=== PATIENT | male | born 1950 | race Caucasian/White ===

== ENCOUNTER 2018-05-29 19:47 | Emergency (ER) | payer OTHER ==
[2018-05-29] MEDS ORDERED: NS 1,000 ML IV ONE (19:51)
--- NOTE | 2018-05-29 19:53 | EDPHY ---
H & P Time Seen by Provider: 05/29/18 19:51 HPI/ROS: CHIEF COMPLAINT: Intoxication, head injury HISTORY OF PRESENT ILLNESS: The patient is a 68-year-old intoxicated man who fell in the parking lot of grocery store. He has a hematoma and abrasion to his right forehead. No loss of consciousness. He denies neck pain. No other acute injuries. Witnesses called EMS who brought him here. The patient states he has only had 2 beers. He has multiple old wounds from previous falls including want to his right hip. REVIEW OF SYSTEMS: Constitutional: denies: chills, fever, recent illness, recent injury EENTM: denies: blurred vision, double vision, nose congestion Respiratory: denies: cough, shortness of breath Cardiac: denies: chest pain, irregular heart rate, lightheadedness, palpitations Gastrointestinal/Abdominal: denies: abdominal pain, diarrhea, nausea, vomiting, blood streaked stools Genitourinary: denies: dysuria, frequency, hematuria, pain Musculoskeletal: denies: joint pain, muscle pain Skin: Multiple bruises and abrasions, see above Neurological: denies: headache, numbness, paresthesia, tingling, dizziness, weakness Hematologic/Lymphatic: denies: blood clots, easy bleeding, easy bruising Immunologic/allergic: denies: HIV/AIDS, transplant EXAM: GENERAL: Well-appearing, well-nourished and in no acute distress. HEAD: Hematoma and abrasion to right forehead, does not require sutures. EYES: Pupils equal round and reactive to light, extraocular movements intact, sclera anicteric, conjunctiva are normal. ENT: TMs normal, nares patent, oropharynx clear without exudates. Moist mucous membranes. NECK: Normal range of motion, supple without lymphadenopathy or JVD. LUNGS: Breath sounds clear to auscultation bilaterally and equal. No wheezes rales or rhonchi. HEART: Regular rate and rhythm without murmurs, rubs or gallops. ABDOMEN: Soft, nontender, normoactive bowel sounds. No guarding, no rebound. No masses appreciated. BACK: No CVA tenderness, no spinal tenderness, step-offs or deformities EXTREMITIES: Normal range of motion, no pitting or edema. No clubbing or cyanosis. Chronic healing wound to right hip, bandage NEUROLOGICAL: Cranial nerves II through XII grossly intact. Normal speech, normal gait. 5/5 strength, normal movement in all extremities, normal sensation PSYCH: Normal mood, normal affect. SKIN: Abrasion/hematoma to right forehead, multiple old abrasions and contusions. Source: Patient Exam Limitations: No limitations - Medical/Surgical History Hx Asthma: No Hx Chronic Respiratory Disease: No Hx Diabetes: No Hx Cardiac Disease: No Hx Renal Disease: No Hx Cirrhosis: No Hx Alcoholism: No Hx HIV/AIDS: No Hx Splenectomy or Spleen Trauma: No Other PMH: none - Family History Significant Family History: No pertinent family hx - Social History Smoking Status: Former smoker Alcohol Use: None Constitutional: Initial Vital Signs Temperature (C) 36.6 C 05/29/18 19:50 Heart Rate 84 05/29/18 19:50 Respiratory Rate 18 05/29/18 19:50 Blood Pressure 163/96 H 05/29/18 19:50 O2 Sat (%) 95 05/29/18 19:50 O2 Delivery Mode Room Air Medical Decision Making - Diagnostics Imaging Results: Imaging Impressions Head CT 05/29/18 19:51 Impression: 1. Negative for intracranial bleed. 2. Atrophy and presumed small vessel disease. 3. See above report for additional findings. CT Cervical Spine Without Contrast History: Trauma. Technique: Multislice helical CT through the cervical spine without contrast from the skull base to T1. Soft tissue and bone evaluation is performed. Sagittal and coronal reconstructions are obtained and reviewed. Dose reduction techniques were utilized. Findings: There is a minimal anterolisthesis of C4 with respect to C3 presumably on the basis of hypertrophic degenerative changes. Otherwise, the bone alignment is anatomic. No fracture or dislocation is identified. The relationship between skull base and C1 is normal. The C1-C2 articulation is normal. The odontoid process is normal. The cervical thoracic junction is normal. Soft tissue window evaluation does not show evidence of epidural or prevertebral hematoma. Multilevel degenerative changes are seen with disk space loss extending from C3- C4 to the C6-C7 level. Findings are most pronounced at C4-C5 where there is disk space loss and prominent vertebral body osteophytic lipping which could contribute to canal stenosis. There is also multilevel facet and uncovertebral arthropathy resulting in multilevel neural foraminal impingement. Impression: 1. Negative for fracture. 2. Multilevel degenerative changes as detailed above. 3. See above report for additional findings. Results called and discussed with AMERICA WONG M.D. on 05/29/2018 at 21:36. Cervical Spine CT 05/29/18 19:53 Impression: 1. Negative for intracranial bleed. 2. Atrophy and presumed small vessel disease. 3. See above report for additional findings. CT Cervical Spine Without Contrast History: Trauma. Technique: Multislice helical CT through the cervical spine without contrast from the skull base to T1. Soft tissue and bone evaluation is performed. Sagittal and coronal reconstructions are obtained and reviewed. Dose reduction techniques were utilized. Findings: There is a minimal anterolisthesis of C4 with respect to C3 presumably on the basis of hypertrophic degenerative changes. Otherwise, the bone alignment is anatomic. No fracture or dislocation is identified. The relationship between skull base and C1 is normal. The C1-C2 articulation is normal. The odontoid process is normal. The cervical thoracic junction is normal. Soft tissue window evaluation does not show evidence of epidural or prevertebral hematoma. Multilevel degenerative changes are seen with disk space loss extending from C3- C4 to the C6-C7 level. Findings are most pronounced at C4-C5 where there is disk space loss and prominent vertebral body osteophytic lipping which could contribute to canal stenosis. There is also multilevel facet and uncovertebral arthropathy resulting in multilevel neural foraminal impingement. Impression: 1. Negative for fracture. 2. Multilevel degenerative changes as detailed above. 3. See above report for additional findings. Results called and discussed with AMERICA WONG M.D. on 05/29/2018 at 21:36. Imaging: Discussed imaging studies w/ scallop binder Radiologist ED Course/Re-evaluation: CT is reassuring. The patient is ambulatory. is here to take him home. They declined further workup or testing. His abrasion/hematoma was cleaned and dressed. We discussed follow-up and indications for returning. Differential Diagnosis: Partial list of the Differential diagnosis considered include but were not limited to; intoxication, head injury, neck injury, abrasion, hematoma and although unlikely based on the history and physical exam, I also considered assault, infection. I discussed these differential diagnoses and the plan with the patient as well as the usual and expected course. The patient understands that the diagnosis is provisional and that in medicine we are not always correct and that further workup is often warranted. Usual and customary warnings were given. All of the patient's questions were answered. The patient was instructed to return to the emergency department should the symptoms at all worsen or return, otherwise to followup with the physician as we discussed. - Data Points Laboratory Results: 05/29/18 20:10 Ethyl Alcohol 345 mg/dL H mg/dL (0-10) Medications Given: Discontinued Medications Sodium Chloride (Ns) 1,000 mls @ 0 mls/hr IV ONCE ONE; Wide Open PRN Reason: Protocol Stop: 05/29/18 19:52 Last Admin: 05/29/18 20:13 Dose: 1,000 mls Departure - Departure Disposition: Home, Routine, Self-Care Clinical Impression: Hematoma Alcoholic intoxication Qualifiers: Complication of substance-induced condition: uncomplicated Qualified Code(s): F10.920 - Alcohol use, unspecified with intoxication, uncomplicated Abrasion head Qualifiers: Encounter type: initial encounter Qualified Code(s): S00.91XA - Abrasion of unspecified part of head, initial encounter Condition: Fair Instructions: Alcohol Intoxication (ED), Hematoma (ED) Referrals: Patient,NotPresent [Unknown] - As per Instructions
[2018-05-29 21:56] VITALS: BP 150/100
== END 2018-05-29 21:55 | disposition home or self-care (01) ==
LOC: EDUNIT#
DX: S00.83XA Contusion of other part of head, initial encounter (principal); S00.81XA Abrasion of other part of head, initial encounter; F10.920 Alcohol use, unspecified with intoxication, uncomplicated; E86.9 Volume depletion, unspecified; Z87.891 Personal history of nicotine dependence; W18.39XA Other fall on same level, initial encounter; Y92.481 Parking lot as the place of occurrence of the external cause; Y99.8 Other external cause status
CPT/HCPCS: G0480

== ENCOUNTER 2018-06-03 16:07 | Emergency (ER) | payer OTHER ==
--- NOTE | 2018-06-03 16:35 | EDPHY ---
H & P Stated Complaint: fall - Personal History Current Tetanus/Diphtheria Vaccine: No Current Tetanus Diphtheria and Acellular Pertussis (TDAP): No - Medical/Surgical History Hx Asthma: No Hx Chronic Respiratory Disease: No Hx Diabetes: No Hx Cardiac Disease: No Hx Renal Disease: No Hx Cirrhosis: No Hx Alcoholism: Yes Hx HIV/AIDS: No Hx Splenectomy or Spleen Trauma: No Other PMH: ETOH - Social History Smoking Status: Former smoker Time Seen by Provider: 06/03/18 16:20 HPI/ROS: CHIEF COMPLAINT: "I hit my head" HISTORY OF PRESENT ILLNESS: 68-year-old male with no known coagulopathic disorder, arrives via private vehicle with his complaining of facial and head injury after he had been drinking alcohol, sustained a mechanical fall walking on his driveway described as a gravel driveway, fell forward impacting his face with no loss of consciousness. This was a mechanical non syncopal episode. No prolonged periods of mobility on the ground. No amnesia. No midline C-spine pain. No visual disturbance. No rhinorrhea. No peripheral paresthesia, weakness, numbness.. PRIMARY CARE PROVIDER: None REVIEW OF SYSTEMS: A ten point review of systems was performed and is negative with the exception of the items mentioned in the HPI PAST MEDICAL/SURGICAL HISTORY: History of alcoholism. no anticoagulant use,. Tetanus up-to-date. 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 He lives with his who is software test automation engineer as well that is currently working SOCIAL HISTORY: denies alcohol use at time of incident PHYSICAL EXAM 1) GENERAL: Well-developed, well-nourished, alert and oriented. Appears to be in no acute distress. Answering questions appropriately. Smiling, making jokes 2) HEAD: Normocephalic, right lateral eyebrow laceration measuring 1.5 cm. 3) HEENT: Pupils equal, round, reactive to light bilaterally. Inferior nasal laceration measuring 1.5 cm. Negative Horners. Nasopharynx, oropharynx, clear. No deformity or angulation of nose. Superficial skin defects on the bridge in tip of the nose. No septal hematoma. No rhinorrhea. No oral trauma. Ears bilaterally with normal tympanic membranes. No hemotympanum. No fluid or blood in the external auditory canal. No raccoon eyes. No Whelan sign. Teeth are normally aligned with no gross malocclusion, TMJ bilaterally nontender, facial bones nontender including the zygomatic arch, maxilla mandible. 4) NECK: No cervical collar is on. Posterior cervical spine is nontender, no stepoff, no effusion. Full range of motion which does not elicit any midline cervical spine pain, no posterior midline tenderness, no step-off. 5) LUNGS: Clear to auscultation bilaterally, no wheezes, no rhonchi, no retractions. No obvious signs of trauma. No chest wall pain. No flaring, no grunting. Moving symmetrically. No crepitus. 6) HEART: [Regular rate and rhythm, 7) ABDOMEN: No guarding, no rebound, no focal tenderness, no peritoneal signs, no signs of trauma, no ecchymosis 8) MUSCULOSKELETAL: Moving all extremities, no focal areas of tenderness, no obvious trauma. 9) BACK: No midline vertebral tenderness, no fluctuance, no step-off, no obvious trauma, no visual or palpable abnormality. 10) SKIN: Multiple abrasion to the DIFFERENTIAL DIAGNOSIS: Not necessarily in any particular order, my differential diagnosis includes, but is not limited to, concussion, skull fracture, intraparenchymal contusion, subarachnoid, subdural and epidural hematoma. The patient understands that this diagnosis is provisional and can never be 100% accurate. (Caroline Matthews) Constitutional: Initial Vital Signs Temperature (C) 37.6 C 06/03/18 16:13 Heart Rate 121 H 06/03/18 16:13 Respiratory Rate 16 06/03/18 16:13 Blood Pressure 128/90 H 06/03/18 16:13 O2 Sat (%) 94 06/03/18 16:13 O2 Delivery Mode Room Air Allergies/Adverse Reactions: No Known Allergies Allergy (Unverified 06/03/18 16:12) Home Medications: Medication Instructions Recorded Amoxicillin/Clavulanate Pot 875 mg PO BID #14 tab 06/03/18 [Augmentin 875 mg tab] Medical Decision Making - Diagnostics Imaging Results: Imaging Impressions Cervical Spine CT 06/03/18 16:33 Impression: 1. No acute intracranial pathology 2. New bilateral nasal lateral plate fractures. 2. CT Cervical Spine Without Contrast History: Trauma., Trip and fall. Neck pain. ETOH. Comparison: May 29, 2008 Technique: Multislice helical CT through the cervical spine without contrast from the skull base to T1. Soft tissue and bone evaluation is performed. Sagittal and coronal reconstructions are obtained and reviewed. Dose reduction techniques were utilized. Findings: Cervical alignment is stable, with mild retrolistheses associated with moderate-severe degenerative disk space narrowing between C3 and C5. No fracture or dislocation is identified. There is stable multilevel bilateral degenerative facet disease. The relationship between skull base and C1 is normal. The C1-C2 articulation is normally aligned. The odontoid process is intact. The cervical thoracic junction is normally aligned. Soft tissue window evaluation does not show evidence of epidural or prevertebral hematoma. Impression: 1. Stable spondylosis x4 days. No acute posttraumatic abnormality identified. Results called and discussed with Caroline Matthews, at 06/03/2018 17:24 Final results are concordant with the initial interpretation. General information for patients regarding this examination can be found at [email or web address]. If you have questions or comments about this report, please contact me at (hospital) or [phone] (cell). Head CT 06/03/18 16:33 Impression: 1. No acute intracranial pathology 2. New bilateral nasal lateral plate fractures. 2. CT Cervical Spine Without Contrast History: Trauma., Trip and fall. Neck pain. ETOH. Comparison: May 29, 2008 Technique: Multislice helical CT through the cervical spine without contrast from the skull base to T1. Soft tissue and bone evaluation is performed. Sagittal and coronal reconstructions are obtained and reviewed. Dose reduction techniques were utilized. Findings: Cervical alignment is stable, with mild retrolistheses associated with moderate-severe degenerative disk space narrowing between C3 and C5. No fracture or dislocation is identified. There is stable multilevel bilateral degenerative facet disease. The relationship between skull base and C1 is normal. The C1-C2 articulation is normally aligned. The odontoid process is intact. The cervical thoracic junction is normally aligned. Soft tissue window evaluation does not show evidence of epidural or prevertebral hematoma. Impression: 1. Stable spondylosis x4 days. No acute posttraumatic abnormality identified. Results called and discussed with Caroline Matthews, at 06/03/2018 17:24 Final results are concordant with the initial interpretation. General information for patients regarding this examination can be found at [email or web address]. If you have questions or comments about this report, please contact me at (hospital) or [phone] (cell). Images reviewed myself (Caroline Matthews) Procedures: Procedure: Laceration repair. I explained the indications, risks and benefits for both laceration repair and anesthetic administration. Verbal consent was obtained from the patient. Patient has multiple lacerations on the face and nose which were anesthetized using 0.5% bupivicaine without epinephrine. After anesthetic administered the patient was observed for a period of time and had no apparent adverse effects. The wound was cleaned, prepped, draped in normal sterile fashion and explored to its base. No foreign body seen, no foreign bodies palpated. The right lateral eyebrow laceration measuring 1.5 cm closed with tissue adhesive. The inferior nasal laceration measuring 1.5 cm closed with 4 simple interrupted 6 0 Prolene sutures. There were no deep structures involved. The wound repair was complex. The procedure was performed by myself. Patient has been informed that scarring will occur, although efforts have been made to minimize this. (Caroline Matthews) ED Course/Re-evaluation: Patient was re-evaluated with serial examinations. Imaging studies were discussed with him. No intracranial or cervical posttraumatic sequelae. He is noted to have new nasal bone fracture. He had multiple abrasions and lacerations struck closed primarily in the ER. On the tip and bridge of his nose he is noted to have small skin defects which I recommended follow up with Plastic surgery as well as ENT for underlying nasal fracture. I will plan on initiating antibiotic therapy. His tetanus is up-to-date. Regarding his alcohol use. The telephonic case manager, the patient and his had multiple lengthy discussions discussing sobriety options for the e patient. Doubt delirium tremens. He does not want to initiate sobriety treatment tonight. Doubt alcoholic hallucinosis. He and feel comfortable being discharged. 7:16 p.m.: The patient had slow bleeding from the abrasion on his nose. Topical TXA was applied for a period of time resulting in hemostasis. (Caroline Matthews) I did not see this patient while he was in the emergency department. However his care was discussed with the PA while the patient was in the department. I agree with treatment plan and management (Casa Pichardo) - Data Points Medications Given: Discontinued Medications Amoxicillin/Clavulanate Potassium (Augmentin 875mg) 875 mg PO EDNOW ONE PRN Reason: Protocol Stop: 06/03/18 18:16 Last Admin: 06/03/18 18:30 Dose: 875 mg Tranexamic Acid (Cyklokapron) 500 mg TP EDNOW ONE Stop: 06/03/18 18:35 Last Admin: 06/03/18 18:37 Dose: 500 mg Departure - Departure Disposition: Home, Routine, Self-Care Clinical Impression: Alcohol abuse, Nasal bone fracture, Nasal laceration, Forehead laceration, Head injury Condition: Good Instructions: Nasal Fracture (ED), Abrasion (ED) Additional Instructions: ALTHOUGH THERE IS NO EVIDENCE OF SERIOUS HEAD INJURY AT THIS TIME, DELAYED SIGNS CAN APPEAR 24 TO 48 HOURS AFTER INJURY. PLEASE RETURN TO THE EMERGENCY DEPARTMENT (ED) IMMEDIATELY IF YOU HAVE INCREASED HEADACHE, PERSISTENT HEADACHE , VOMITING, WEAKNESS, CONFUSION OR VISUAL PROBLEMS. WE RECOMMEND THAT YOU DO NOT RESUME CONTACT SPORTS OR ACTIVITIES THAT TAKE COORDINATION OR BALANCE SUCH SKIING OR RIDING A BICYCLE UNTIL CLEARED TO DO SO BY YOUR DOCTOR OR BY A NEUROLOGIST. Please follow up with Alcohol detox and rehabilitation. [facility] [place] [facility] for detox. If you decide you would like to go, you may call and ask to speak with someone in "detox intake" I have provided you with information for both Denita Young and Vineet at the [facility] Referrals: Matty Dawkins JR, MD [Medical Doctor] - 2-3 days, call for appt. (Dr. Dawkins is a plastic surgeon) Farhad Harding MD [Medical Doctor] - 2-3 days, call for appt. (Dr. Bee Covarrubias is an ear nose and throat doctor. Do not blow your nose) Prescriptions: Amoxicillin/Clavulanate Pot [Augmentin 875 mg tab] 875 mg PO BID #14 tab
[2018-06-03] MEDS ORDERED: SKIN ADHESIVE (DERMABOND) 1 EACH TP ONE (17:28)
[2018-06-03] MEDS ORDERED: AMOXICILLIN/CLAVULANATE POT 875/125 MG TAB PO ONE (18:15)
[2018-06-03 18:30] VITALS: BP 125/84
[2018-06-03] MEDS ORDERED: TRANEXAMIC ACID 1,000 MG/10 ML VIAL TP ONE (18:34)
--- NOTE | 2018-06-03 18:49 | ASMTCMCOM ---
CM Note CM Note Notes: I have met with patient and his Ariella or to discuss ETOH detox and rehabilitation resources. Ariella explains that patient has been drinking heavily for the past 10 years. She states that patient has not been to rehab or addressed his drinking/consequences despite the effects they have taken on his health and their relationship. 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 Ariella admits that she has "enabled" patient and "made excuses" for him for many years. She would like for him to get help and is not sure how to encourage him to do this. They do not have children or other family in the area, nor has Ariella sought out other support such as Reynaldo Nunez. I have discussed detox and rehab programs with Ariella and encouraged her to begin having these conversations with patient. I have also discussed this with the patient and encouraged him to consider going to detox this evening. I spoke with Josesito at [facility] in [place] and confirmed that they have a detox bed available should patient agree to going. Patient does acknowledge that he has a "drinking problem" but insists that his fall tonight (as well as on May 29) were unrelated to his drinking. At the same time he admits that he sometimes does not "remember" things when they happen. Patient has refused to go to detox this evening despite encouragement from his and myself. He states that he will consider this tomorrow after having time to "prepare". I reiterated to patient and his that he may go directly to [facility] this evening OR call in the morning to confirm if they still have a bed. I also encourged them to consider looking into the [facility] program (detox and rehab) at [facility]. Resources for both were given. I have encouraged Ariella to look into [facility] as well Date Signed: 06/03/2018 06:48 PM Electronically Signed By:Claribel Hernandez RN
== END 2018-06-03 19:49 | disposition home or self-care (01) ==
PROC: 09QKXZZ Repair Nasal Mucosa and Soft Tissue, External Approach (ICD-10-PCS; principal; 2018-06-03)
DX: S02.2XXB Fracture of nasal bones, initial encounter for open fracture (principal); S01.111A Laceration without foreign body of right eyelid and periocular area, initial encounter; F10.10 Alcohol abuse, uncomplicated; Z87.891 Personal history of nicotine dependence; W01.198A Fall on same level from slipping, tripping and stumbling with subsequent striking against other object, initial encounter; Y92.093 Driveway of other non-institutional residence as the place of occurrence of the external cause; Y99.8 Other external cause status; Y93.01 Activity, walking, marching and hiking

== ENCOUNTER 2018-08-05 19:56 | Emergency (ER) | payer OTHER ==
--- NOTE | 2018-08-05 22:21 | EDPHY ---
H & P Stated Complaint: TRIPPED UP AND FELL HIT L EAR ON SOMETHING, LACC TO L EAR NO LOC Time Seen by Provider: 08/05/18 21:59 HPI/ROS: CHIEF COMPLAINT: Ear laceration HISTORY OF PRESENT ILLNESS: 68-year-old male via private vehicle complaining of acute left earlobe laceration we sustained a mechanical fall, tripped and fell catching his ear on a stone object in his house. No head injury. No loss of consciousness. No headache. No nausea or vomiting. No midline C-spine pain. No peripheral paresthesia, weakness, numbness. This was a mechanical incident. No syncope. No anticoagulant use PRIMARY CARE PROVIDER: REVIEW OF SYSTEMS: 10 systems reviewed and negative with the exception of the elements mentioned in the history of present illness PAST MEDICAL/SURGICAL HISTORY: no anticoagulant use, no relevant medical/ surgical history SOCIAL HISTORY: PHYSICAL EXAM 1) GENERAL: Well-developed, well-nourished, alert and oriented. Appears to be in no acute distress. Answering questions appropriately. 2) HEAD: Normocephalic, atraumatic 3) HEENT: Pupils equal, round, reactive to light bilaterally. Negative Horners. Nasopharynx, oropharynx, clear. No deformity or angulation of nose. No septal hematoma. No rhinorrhea. No oral trauma. Ears bilaterally with normal tympanic membranes. Left inferior earlobe 2 cm well-demarcated laceration. No hemotympanum. No fluid or blood in the external auditory canal. No raccoon eyes. No Whelan sign. Teeth are normally aligned with no gross malocclusion, TMJ bilaterally nontender, facial bones nontender including the zygomatic arch, maxilla mandible. 4) NECK: No cervical collar is on. Posterior cervical spine is nontender, no stepoff, no effusion. Full range of motion which does not elicit any midline cervical spine pain, no posterior midline tenderness, no step-off. 5) LUNGS: Clear to auscultation bilaterally, no wheezes, no rhonchi, no retractions. Left clavicle ecchymosis with no underlying osseous discomfort. No crepitus No obvious signs of trauma. No chest wall pain. No flaring, no grunting. Moving symmetrically. No crepitus. 6) HEART: [Regular rate and rhythm, 7) ABDOMEN: No guarding, no rebound, no focal tenderness, no peritoneal signs, no signs of trauma, no ecchymosis 8) MUSCULOSKELETAL: Moving all extremities, no focal areas of tenderness, no obvious trauma. 9) BACK: Patient logrolled while holding inline traction.No midline vertebral tenderness, no fluctuance, no step-off, no obvious trauma, no visual or palpable abnormality. 10) SKIN: No laceration. No abrasion DIFFERENTIAL DIAGNOSIS: Not necessarily in any particular order, my differential diagnosis includes, but is not limited to, concussion, skull fracture, intraparenchymal contusion, subarachnoid, subdural and epidural hematoma. The patient understands that this diagnosis is provisional and can never be 100% accurate. - Personal History Current Tetanus/Diphtheria Vaccine: No Current Tetanus Diphtheria and Acellular Pertussis (TDAP): No - Medical/Surgical History Hx Asthma: No Hx Chronic Respiratory Disease: No Hx Diabetes: No Hx Cardiac Disease: No Hx Renal Disease: No Hx Cirrhosis: No Hx Alcoholism: Yes Hx HIV/AIDS: No Hx Splenectomy or Spleen Trauma: No Other PMH: ETOH - Social History Smoking Status: Former smoker Constitutional: Initial Vital Signs Temperature (C) 36.6 C 08/05/18 20:01 Heart Rate 68 08/05/18 20:01 Respiratory Rate 18 08/05/18 20:01 Blood Pressure 154/93 H 08/05/18 20:01 O2 Sat (%) 96 08/05/18 20:01 O2 Delivery Mode Room Air Allergies/Adverse Reactions: No Known Allergies Allergy (Unverified 08/05/18 20:04) Home Medications: Medication Instructions Recorded NK [No Known Home Meds] 08/05/18 Medical Decision Making Procedures: Procedure: Laceration repair. I explained the indications, risks and benefits for both laceration repair and anesthetic administration. Verbal consent was obtained from the patient. The laceration on the left earlobe was anesthetized using 0.5% bupivicaine without epinephrine. After anesthetic administered the patient was observed for a period of time and had no apparent adverse effects. The wound was cleaned, prepped, draped in normal sterile fashion and explored to its base. No foreign body seen, no foreign bodies palpated. There were no deep structures involved. The wound was repaired with 10 simple interrupted 6 0 Prolene sutures . pressure dressing applied by staff to reduce development of hematoma.. The wound repair was complex. The procedure was performed by myself. Patient has been informed that scarring will occur, although efforts have been made to minimize this. ED Course/Re-evaluation: 10:20 p.m.: Patient has negative Cuban head and C-spine decision-making tools. I Do not think that imaging of head or C-spine currently indicated. He has isolated left ear laceration which has been closed primarily in the ER. Departure - Departure Disposition: Home, Routine, Self-Care Clinical Impression: Laceration of ear lobe Qualifiers: Encounter type: initial encounter Laterality: left Qualified Code(s): S01.312A - Laceration without foreign body of left ear, initial encounter Condition: Good Instructions: Care For Your Stitches (ED), Laceration (ED) Additional Instructions: Return to the ER if you develop redness, swelling, discharge, warmth to the wound, red streaks going up your arm or leg, or any other symptoms that concern you. Referrals: Return, to the ER in 7 days for suture removal [Other] - 08/12/18
[2018-08-05 23:14] VITALS: BP 140/84
== END 2018-08-05 23:12 | disposition home or self-care (01) ==
PROC: 0HQ3XZZ Repair Left Ear Skin, External Approach (ICD-10-PCS; principal; 2018-08-05)
DX: S01.312A Laceration without foreign body of left ear, initial encounter (principal); W01.198A Fall on same level from slipping, tripping and stumbling with subsequent striking against other object, initial encounter; Y92.009 Unspecified place in unspecified non-institutional (private) residence as the place of occurrence of the external cause

== ENCOUNTER 2018-08-28 16:10 | Emergency (ER) | payer OTHER ==
[2018-08-28 16:16] VITALS: BP 117/75
--- NOTE | 2018-08-28 16:32 | EDPHY ---
H & P Stated Complaint: ETOH, fall hip pain Time Seen by Provider: 08/28/18 16:18 HPI/ROS: CHIEF COMPLAINT: Right hip pain times 7-8 months HISTORY OF PRESENT ILLNESS: 68-year-old male arrives by ambulance. He is coming from his home, called 911 because of 7-8 months of right hip pain, atraumatic. He has not sought medical evaluation for this. He has been treating his pain with alcohol. Able to bear weight albeit with a cane. He does admit to alcohol use states that he is not intoxicated. PRIMARY CARE PROVIDER: None REVIEW OF SYSTEMS: 10 systems reviewed and negative with the exception of the elements mentioned in the history of present illness PAST MEDICAL/SURGICAL HISTORY: no anticoagulant use, no relevant medical/ surgical history SOCIAL HISTORY: denies alcohol use at time of incident PHYSICAL EXAM 1) GENERAL: Well-developed, well-nourished, alert and oriented. Appears to be in no acute distress. Answering questions appropriately. 2) HEAD: Normocephalic, atraumatic 3) HEENT: Pupils equal, round, reactive to light bilaterally. Negative Horners. Nasopharynx, oropharynx, clear. No deformity or angulation of nose. No septal hematoma. No rhinorrhea. No oral trauma. Ears bilaterally with normal tympanic membranes. No hemotympanum. No fluid or blood in the external auditory canal. No raccoon eyes. No Whelan sign.. 4) NECK: No cervical collar is on. Posterior cervical spine is nontender, no stepoff, no effusion. Full range of motion which does not elicit any midline cervical spine pain, no posterior midline tenderness, no step-off. 5) LUNGS: Clear to auscultation bilaterally, no wheezes, no rhonchi, no retractions. No obvious signs of trauma. No chest wall pain. No flaring, no grunting. Moving symmetrically. No crepitus. 6) HEART: [Regular rate and rhythm, 7) ABDOMEN: No guarding, no rebound, no focal tenderness, no peritoneal signs, no signs of trauma, no ecchymosis 8) MUSCULOSKELETAL: Right lower extremity: No shortening, no leg length discrepancy, right acetabulum has no fluctuance, no pain with axial loading. No discoloration. Soft compartments. Otherwise, Moving all extremities, no focal areas of tenderness, no obvious trauma. 9) BACK: No midline vertebral tenderness, no fluctuance, no step-off, no obvious trauma, no visual or palpable abnormality. 10) SKIN: No laceration. No abrasion DIFFERENTIAL DIAGNOSIS: In no particular order including but not limited to DJD , septic arthritis, fracture, sprain, strain, dislocation - Personal History Current Tetanus/Diphtheria Vaccine: Yes - Medical/Surgical History Hx Asthma: No Hx Chronic Respiratory Disease: No Hx Diabetes: No Hx Cardiac Disease: No Hx Renal Disease: No Hx Cirrhosis: No Hx Alcoholism: Yes Hx HIV/AIDS: No Hx Splenectomy or Spleen Trauma: No Other PMH: ETOH - Social History Smoking Status: Former smoker Constitutional: Initial Vital Signs Temperature (C) 36.7 C 08/28/18 16:10 Heart Rate 76 08/28/18 16:10 Respiratory Rate 16 08/28/18 16:10 Blood Pressure 117/75 08/28/18 16:10 O2 Sat (%) 91 L 08/28/18 16:10 O2 Delivery Mode Room Air Allergies/Adverse Reactions: No Known Allergies Allergy (Unverified 08/05/18 20:04) Home Medications: Medication Instructions Recorded NK [No Known Home Meds] 08/05/18 Medical Decision Making - Diagnostics Imaging Results: Imaging Impressions Hip X-Ray 08/28/18 16:23 Impression: Severe osteoarthritis of the right hip joint. images reviewed by myself ED Course/Re-evaluation: Patient was re-evaluated with serial examinations. Discussed his negative x- ray. I have observed him ambulating with his cane with stable steady gait. He is noted to have DJD on x-ray. At this time I do not think that further diagnostic studies are indicated. This appears to be a chronic issue. I have recommend he establish with primary care and establish orthopedic care. I do not think that MRI is indicated at this time. I do not think that arthrocentesis indicated at this time. He does admit to alcohol use. He denies suicidal or homicidal ideations. He is answering questions appropriately. He would like to be discharged back home. I have offered to [facility] which he [facility]. States that he is not interested in long-term sobriety. I saw this patient independently based on established practice protocols. Care of patient under supervision of secondary supervising physician Dr Sheriff with whom I discussed case. Departure - Departure Disposition: Home, Routine, Self-Care Clinical Impression: Chronic right hip pain Condition: Good Instructions: Hip Pain (ED) Additional Instructions: Return to the ER immediately if you experience discoloration, have worsening pain, numbness, tingling, or any other symptoms that concern you. If you received x-rays in the emergency department today, be advised, that ligamentous , tendon, muscular, and other non-bony injury cannot be fully ruled out. Please consider long-term sobriety from alcohol Referrals: Riya Comer MD [[facility] [place] Primary Care Provider] - 2-3 days, call for appt. Derrek Rangel MD [Medical Doctor] - 2-3 days, call for appt.
== END 2018-08-28 17:00 | disposition home or self-care (01) ==
LOC: EDUNIT#
DX: M25.551 Pain in right hip (principal); Z87.891 Personal history of nicotine dependence